=== PATIENT | female | born 1995 | race Caucasian/White ===

== ENCOUNTER 2018-09-12 13:47 | Inpatient (IN) | payer OTHER ==
[~2018-09-12] VITALS: Ht 157.5 cm; Wt 108.0 kg
[~2018-09-12 13:47] MED LIST: SYNTHROID0.1 MG/TAB
[2018-10-12] VITALS (12 sets, daily range): BP systolic 117–138; BP diastolic 66–84; PULSE 64–86; TEMP 98–98.8
[2018-10-12] MEDS ORDERED: SYNTHROID0.05 MG/TA PO (07:44)
[2018-10-12] MEDS ORDERED: MULTI VITAMINS1 TAB PO (07:44)
[2018-10-12] MEDS ORDERED: NATURE'S BLE1000 MCG PO (07:44)
--- NOTE | 2018-10-12 08:16 | NUR ---
The patient ambulated back to [facility] independently using a steady gait and appeared to tolerate the activity well. Vital signs obtained. Consent and test refusal form signed. 20G IV started in right forearm on second attempt, LR infusing without difficulty. Assessment completed. Mother brought back to be at her bedside. Call light is within reach. The patient denies any further needs a this time. Will continue to monitor the patient.
--- NOTE | 2018-10-12 09:00 | NUR ---
Dr. Gongora and the OR team were made aware that the patient has nipple rings in place that she refuses to remove due to them "being new and will close if taken out". The nurse instructed the patient while signing her consent the risk of leaving metal in place during surgery due to the risk of hart, fire and krueger. She verbalized understanding and is going to place paper tape over each piercing prior to surgery.
--- NOTE | 2018-10-12 11:45 | NUR ---
Patient up from PACU, Drowsy but arouses to voice. Post op fluids infusing to right forarm IV. SCDs to BLE. Lap sites x 3 with bandaids, CDI, 4th lap site is below drain dressing. DONTAE to left quadrant to bulb suction with light pink drainage pressent. Patient oriented to room. Denies further needs at this time.
--- NOTE | 2018-10-12 14:50 | NUR ---
Patient down with Xray for swallow study.
--- NOTE | 2018-10-12 15:20 | NUR ---
Patient up from X-ray. x1 assist transfer to bed from wheelchair.
--- NOTE | 2018-10-12 18:23 | NUR ---
Patient has done well throughout the afternoon, tolerating clear liquids. Continues to have blood tinged drainage from DONTAE drain. Has been up to restroom,x1 assist, voiding without difficulty. Has requested pain medicaions throughout the day, given per orders. Denies further needs at this time. Mother at bedside. Denies further needs at this time.
--- NOTE | 2018-10-12 19:45 | NUR ---
Bedside report received marcos Lovelace RN.
--- NOTE | 2018-10-12 20:00 | NUR ---
Patient resting in bed at this time watching TV. Complaints of pain rated 6/10 that feels like bloating or gas pain. Let patient know that I am unable to give more medication for another 45min, she states that the pain is tolerable and she can wait until then for her meds. Assessment complete. Surgical sites are clean and dry with edges well approximated. DONTAE drain has bloody drainage in the bulb. Patient has no other needs at this time. Will continue to monitor. Call light within reach.
--- NOTE | 2018-10-13 | NUR ---
Patient awake at this time and requesting pain meds, rates pain 7/10 and sharp. Provided. Patient up to the restroom then returns to bed. Patient requests some jello, provided. No further needs. Patient states that her pain is much better controlled now than it had been the previous night. Will continue to monitor. Call light within reach.
[2018-10-13 04:01] VITALS: BP 129/75; PULSE 76; TEMP 98.2
--- NOTE | 2018-10-13 06:34 | NUR ---
Report given to CESAR Lovelace
--- NOTE | 2018-10-13 08:00 | NUR ---
Patient in bed resting. Mother at bedside. Alert and oriented x 3. Shift assessment complete. Lap sites are CDI. DONTAE to left quandrant, dressing is CDI, DONTAE to bulb compression with blood tinged drainage present. States she is feeling nauseated this AM, zofran given per orders. Denies further needs at this time.
[2018-10-13 09:06] VITALS: BP 122/81; PULSE 79; TEMP 98.3
--- NOTE | 2018-10-13 09:27 | NUR ---
KENNY met with the patient and the patient's mother, Bailey, to discuss discharge plan. The patient lives in [place] with her , Gopi ([phone]). She states that her is deployed right now and is in [place]. She reports independence with ADLs and does not have any DME. The patient's PCP is a Dr. Dewey at [facility] and she also receives her medications there. She reports no difficulties obtaining her meds. The patient does not have advanced directives and she was not interested in completing them at this time. The patient plans to return back home upon discharge. No additional needs at this time.
[2018-10-13 11:26] VITALS: BP 124/83; PULSE 74; TEMP 98.1
[2018-10-13 16:06] VITALS: BP 131/71; PULSE 78; TEMP 98.4
[2018-10-13] MEDS ORDERED: NORCO 325 MG-51 TAB PO (17:02)
[2018-10-13] MEDS ORDERED: ZOFRAN 4MG T4 MG/TAB PO (17:02)
--- NOTE | 2018-10-13 17:40 | NUR ---
Discharge instructions provided to patient. Educated on signs and symptoms of infection and when to call provider. Patient has follow up appointment with Jadyn gregory on wednesday. DONTAE removed around noon, patient tolerated procedure well. Denies pain or further needs at this time. Patient out by [place] with surgical staff and mother.
== END 2018-10-13 15:40 | disposition home or self-care (01) | DRG 621 ==
LOC: INPTSU 10-12 07:21 → SURG 10-12 07:30
PROVIDERS: ADMIT Surgery
PROC: 0DB64Z3 Excision of Stomach, Percutaneous Endoscopic Approach, Vertical (ICD-10-PCS; principal; 2018-10-12 09:30)
DX: E66.01 Morbid (severe) obesity due to excess calories (principal); Z68.39 Body mass index [BMI] 39.0-39.9, adult; E89.0 Postprocedural hypothyroidism; Z79.890 Hormone replacement therapy; Z85.850 Personal history of malignant neoplasm of thyroid
CPT/HCPCS: J0690; J1100; J1170; J2405; J2704; J3010; J7042; J7120

== ENCOUNTER → 2018-09-27 | Outpatient (CLI) | payer OTHER | LOC: LIGHT 09:57 | DX: Z01.818 Encounter for other preprocedural examination (principal); E66.01 Morbid (severe) obesity due to excess calories; Z68.39 Body mass index [BMI] 39.0-39.9, adult ==

== ENCOUNTER → 2018-10-24 | Outpatient (CLI) | payer OTHER ==
[~2018-10-24] VITALS: Ht 157.5 cm; Wt 101.4 kg
[~2018-10-24] MED LIST changes: +MULTI VITAMINS1 TAB PO; +NATURE'S BLE1000 MCG PO; +NORCO 325 MG-51 TAB PO; +SYNTHROID0.05 MG/TA PO; +ZOFRAN 4MG T4 MG/TAB PO
[2018-10-24 13:01] VITALS: BP 116/64; PULSE 64
== END ==
LOC: LIGHT
DX: Z98.84 Bariatric surgery status (principal); E66.01 Morbid (severe) obesity due to excess calories; Z68.41 Body mass index [BMI] 40.0-44.9, adult; Z71.3 Dietary counseling and surveillance

== ENCOUNTER → 2018-11-21 | Outpatient (CLI) | payer OTHER ==
[~2018-11-21] VITALS: Ht 157.5 cm; Wt 96.2 kg
[2018-11-21 14:03] VITALS: BP 114/60; PULSE 84
== END ==
LOC: LIGHT 13:54
DX: Z98.84 Bariatric surgery status (principal); Z68.38 Body mass index [BMI] 38.0-38.9, adult; E66.01 Morbid (severe) obesity due to excess calories; Z71.3 Dietary counseling and surveillance

== ENCOUNTER → 2019-08-28 | Outpatient (CLI) | payer OTHER ==
[~2019-08-28] VITALS: Ht 157.5 cm; Wt 76.4 kg
[2019-08-28 13:35] VITALS: BP 116/80; PULSE 64
== END ==
LOC: LIGHT 01-16 15:02
DX: E66.8 Other obesity (principal); Z68.30 Body mass index [BMI] 30.0-30.9, adult; Z98.84 Bariatric surgery status
CPT/HCPCS: G0463

== ENCOUNTER → 2019-09-14 | Outpatient (CLI) | payer OTHER ==
[~2019-09-14] VITALS: Ht 157.5 cm; Wt 78.2 kg
[~2019-09-14] MED LIST changes: +PHENTERMINE15 MG PO; +TOPAMAX 25MG25 M1 PO
[2019-09-14 09:06] VITALS: BP 100/76; PULSE 64
== END ==
LOC: LIGHT 09:01
DX: E66.8 Other obesity (principal); Z68.31 Body mass index [BMI] 31.0-31.9, adult; Z98.84 Bariatric surgery status
CPT/HCPCS: G0463